=== PATIENT | male | born 1980 | race Caucasian/White ===

== ENCOUNTER → 2018-07-17 09:01 | Outpatient (CLI) | payer OTHER, SELFPAY ==
[2018-07-17 10:01] LABS: LDH 199 U/L (87-241)
[2018-07-18 13:47] LABS: HCG BETA-SUBUNIT QUANT. < 1 mIU/mL (0-3)
== END ==
PROVIDERS: Family Provider Family Medicine; PCP Family Medicine; Referring Provider Urology; Visit Provider Urology
DX: Z85.47 Personal history of malignant neoplasm of testis (principal)
CPT/HCPCS: 36415; 82105; 83615; 84702

== ENCOUNTER → 2019-01-21 13:38 | Outpatient (CLI) | payer OTHER, SELFPAY ==
--- NOTE | 2019-01-21 13:46 | ECHOD_ITS ---
Reason For Study: Sarcoidosis Procedure This was a 2D Doppler, Color Flow transthoracic echocardiogram. Exam performed in department. Left Ventricle Normal size and thickness. The estimated ejection fraction is 65 %. Stage 1 diastolic dysfunction. No regional wall motion abnormalities noted. Right Ventricle Normal size and thickness. Normal systolic function. Atria Normal left atrium. Normal right atrium. Normal atrial septum. Mitral Valve The mitral valve is structurally normal. No prolapse or stenosis seen. Equivocal mitral valve prolapse. Tricuspid Valve Normal tricuspid valve. Trivial tricuspid valve insufficiency. Right ventricular systolic pressure estimated to be 21 mmHg. Aortic Valve Normal aortic valve. Trisinus/trileaflet aortic valve. Pulmonic Valve Normal pulmonic valve. Trivial pulmonic valve insufficiency. Great Vessels Normal aortic root. Normal arch. Normal inferior vena cava. Inferior vena cava collapse with sniff. Pericardium/Pleural No pericardial effusion. MMode/2D Measurements & Calculations LVIDd: 4.9 cm IVSd: 1.0 cm Ao root diam: 3.3 cm LVIDs: 3.5 cm LVPWd: 0.89 cm RVDd: 4.3 cm FS: 28.0 % LAV(MOD-bp): 35.8 ml LVAd ap4: 33.2 cm2 SV(MOD-sp4): 64.3 ml LAV(MOD-bp) Indexed: 16.6 ml/m2 EDV(MOD-sp4): 103.1 ml LAV(MOD-sp2): 44.1 ml EDV(sp4-el): 105.5 ml LAV(MOD-sp4): 26.5 ml LVAs ap4: 18.4 cm2 ESV(MOD-sp4): 38.8 ml ESV(sp4-el): 39.3 ml EF(MOD-sp4): 62.4 % EF(sp4-el): 62.7 % SV(sp4-el): 66.2 ml LA A4 area: 12.3 cm2 LA dimension(2D): 3.3 cm RA A4 area: 15.0 cm2 Doppler Measurements & Calculations MV E max jorje: 63.0 cm/sec Lat Peak E' Jorje: 9.4 cm/sec Med Peak E' Jorje: 8.5 cm/sec MV A max jorje: 77.0 cm/sec E/E' lat: 6.7 E/E' med: 7.4 MV E/A: 0.82 Ao V2 max: 142.4 cm/sec LV V1 max: 116.3 cm/sec PA V2 max: 110.7 cm/sec Ao max P.1 mmHg LV V1 max P.4 mmHg Ao V2 mean: 101.6 cm/sec Ao mean P.4 mmHg Ao V2 VTI: 26.5 cm TR max jorje: 202.7 cm/sec TR max P.4 mmHg Interpretation Summary The estimated ejection fraction is 65 %. Stage 1 diastolic dysfunction. Trivial tricuspid valve insufficiency. Right ventricular systolic pressure estimated to be 21 mmHg. Equivocal mitral valve prolapse. There is no comparison study available. Ordering Physician: Jorge Waller Referring Physician: James Isaacs Performed By: Shelley Cottrell RDCS, RVT
--- NOTE | 2019-01-21 14:28 | CT_ITS ---
STUDY: CT CHEST WITHOUT CONTRAST REASON FOR EXAM: Male, 38 years old. History of sarcoidosis RADIATION DOSAGE (If Supplied By Facility): CTDIvol = ( 12.56 ) mGy, DLP = ( 486.15 ) mGycm TECHNIQUE: Transaxial imaging was performed without the administration of intravenous contrast material. Individualized dose optimization techniques were used for this CT. COMPARISON: March 09, 2012. FINDINGS: TRACHEA, THYROID, ESOPHAGUS: No tracheomalacia,stricture or wall thickening. Thyroid and esophagus are normal CARDIOVASCULAR SYSTEM: The thoracic aorta is grossly within normal limits. The pulmonary trunk and the left pulmonary arteries are also grossly within normal limits. The heart is not enlarged. There are no vascular developmental anomalies. LIZA AND LYMPH NODES: No hilar masses and no mediastinal, hilar, axillary or supraclavicular adenopathy LUNGS, HIGH /LOW ATTENUATION: There are numerous perilymphatic nodules scattered in both upper lobes. They are intermingled with post inflammatory and traction bronchiectatic changes especially in the right apex. No evidence of honeycombing, groundglass opacities or cavitations. Similar findings were noted in the last examination of January 08, 2012 LUNGS, MOSAIC/CRAZY PAVING: Not evident PLEURA AND CHEST WALL: No plural effusions, pneumothoraces,rib fractures or any osteolytic/osteoblastic changes . The soft tissue chest wall including the breasts are normal UPPER ABDOMEN: Unremarkable CT/Chest without Contrast IMPRESSION: The findings in this study are consistent with stage IV sarcoidosis. There has been no change since the last examination of January 08, 2012 Electronically Signed: Agusto Chapman MD at 7:36 EDT Tel , Service support ,
--- NOTE | 2019-01-21 14:37 | EKG12_ITS ---
Test Reason : SARCOIDOSIS Blood Pressure : / mmHG Vent. Rate : 070 BPM Atrial Rate : 070 BPM P-R Int : 158 ms QRS Dur : 082 ms QT Int : 372 ms P-R-T Axes : 053 051 048 degrees QTc Int : 401 ms Normal sinus rhythm Normal ECG Confirmed by GOLDY MCGEE, DORI ([id number]), design editor PITO JAMES [id number] on 01/26/2019 3:49:40 PM Referred By: Jorge Waller Confirmed By:DORI WINSLOW MD
== END ==
PROVIDERS: Family Provider Family Medicine; PCP Family Medicine
DX: D86.9 Sarcoidosis, unspecified (principal)
CPT/HCPCS: 71250; 93005; 93306

== ENCOUNTER → 2019-05-12 13:23 | Outpatient (CLI) | payer OTHER, SELFPAY ==
--- NOTE | 2019-05-12 13:28 | RAD_ITS ---
STUDY: X-RAY - ABDOMEN/PELVIS REASON FOR EXAM: Male, 38 years old. Flank pain TECHNIQUE: AP supine and upright views of the abdomen and pelvis. COMPARISON: CT from 2016 FINDINGS: 1 cm calcification overlying the right renal shadow. There is an unremarkable bowel gas pattern. There is no demonstrated free abdominal air. The visualized liver, spleen and kidneys are grossly normal in size and morphology. There are calcified phleboliths in the pelvis. Normal visualized osseous structures. RAD/Abdomen Single View IMPRESSION: Right nephrolithiasis Electronically Signed: Emerson Carpio MD at 13:54 EDT , Service support ,
== END ==
PROVIDERS: Family Provider Family Medicine; PCP Family Medicine; Referring Provider Urology; Visit Provider Urology
DX: N20.0 Calculus of kidney (principal)
CPT/HCPCS: 74018

== ENCOUNTER 2019-07-22 05:52 | Day surgery (SDC) | payer OTHER, SELFPAY ==
[2019-07-16 11:17] VITALS: BP 144/86; PULSE 65; RESP 16; TEMP 36.1; O2SAT 99; BMI 26.0
[2019-07-16 11:43] LABS: Hematocrit 47.4 % (40-54); Hemoglobin 15.8 g/dL (13.0-16.5); Mean Corp Hgb Conc 33.3 g/dL (32-36); Mean Corpuscular Hgb 29.9 pg (27.0-32.0); Mean Corpuscular Volume 89.6 fL (80-94); Mean Platelet Vol. 10.5 fl (6.2-12.0); Platelet Count 184 K/mm3 (150-450); RBC Distribution Width CV 12.9 % (11.6-14.6); RBC Distribution Width SD 42.4 fl (35.1-43.9); Red Blood Count 5.29 M/mm3 (4.6-6.2); White Blood Count 5.2 K/mm3 (4.4-11.0)
[2019-07-16 11:56] LABS: International Normalized Ratio 1.2; Prothrombin Time (Protime)PT. 14.6 SECONDS (11.7-14.9)
[2019-07-16 11:57] LABS: Partial Thromboplast Time 38.1 Seconds (24.1-36.2)
[2019-07-16 11:59] LABS: AST(SGOT) 18 U/L (15-37); Alanine Aminotransfer ALT/SGPT 26 U/L (16-61); Albumin, Serum 4.2 g/dL (3.2-5.0); Alkaline Phosphatase 69 U/L (45-117); Anion Gap 2 (5-15); BUN 11 mg/dL (7-18); BUN/Creat Ratio 10.8 RATIO (10-20); Bilirubin, Direct 0.15 mg/dL (0.00-0.30); Chloride 106 mmol/L (98-107); Creatinine, Serum 1.02 mg/dL (0.70-1.30); EST Glomerular Filtration Rate 86 mL/min (>60); Est Glom Filt Rate - Afr Amer 104 mL/min (>60); Estimated Creatinine Clearance 113.05 ml/min; Globulin 3.4 g/dL (2.2-4.2); Glucose 94 mg/dL (74-106); Potassium 4.4 mmol/L (3.5-5.1); Protein, Total 7.6 g/dL (6.4-8.2); Sodium Level 140 mmol/L (136-145)
[2019-07-22 06:15] VITALS: BP 115/87; PULSE 74; RESP 16; TEMP 36.9; O2SAT 99; BMI 26.0
[2019-07-22] MEDS: Lactated Ringers 1,000 ML 100 ML IV ×2 (06:30→09:30)
[2019-07-22] MEDS: Cefazolin 2 GM in 0.9% Normal Saline 100 ML IV (08:04)
--- NOTE | 2019-07-22 09:16 | DCINST_ITS ---
Discharge Diet: No Restrictions, Light diet - advance as tolerated Discharge Activity: Return to Normal Activity Return to work on:: 07/27/19 - Off work Till Saturday Call your doctor if your incision/area has: Sudden Increased Bleeding, Increased Pain/ Swelling, Increased Redness Call your doctor if you observe: Fever of 101 or Higher, Inability to urinate, Uncontrolled pain Instructions: Treating Kidney Stones: Ureteroscopic Stone Removal Allergies/Adverse Reactions: Allergies No Known Allergies Allergy (Verified 07/22/19 06:13) Medications to take at Discharge Ciprofloxacin [Cipro] 500 mg PO BID #6 tab 07/22/19 Oxycodone HCl/Acetaminophen [Percocet 5/325] 1 tab PO Q4H PRN PRN 5 Days #20 tab 07/22/19 Phenazopyridine [Pyridium] 100 mg PO TID PRN #20 tab 07/22/19 The following prescriptions were given: Ciprofloxacin [Cipro] 500 mg PO BID #6 tab Prescription Printed Oxycodone HCl/Acetaminophen [Percocet 5/325] 1 tab PO Q4H PRN PRN 5 Days #20 tab PRN Reason: Pain Prescription Printed Phenazopyridine [Pyridium] 100 mg PO TID PRN #20 tab PRN Reason: burning with urination Prescription Printed Primary Care Physician: James Isaacs [Primary Care Provider] - Test Results: Test results from this visit will be discussed in further detail at your follow- up appointment, if applicable. Please Follow Up With: Mani Lopez MD When: please call to make an appointment.
[2019-07-22] MEDS: Ketorolac 15 MG/ML Vial IV (09:18)
--- NOTE | 2019-07-22 09:19 | OP.PCM_ITS ---
Report of Operation Date of Procedure: 07/22/19 Pre-Operative Diagnosis: Right calyceal large renal calculi within the div erticulum Post-Operative Diagnosis: The same Surgery/Procedure Performed:: Cystoscopy, right retrograde pyelogram, interpretation fluoroscopic images, balloon dilation of the ureter, balloon dilation of the infundibulum of the diverticulum, right ureteroscopy laser lithotripsy of stone, and right stent placement. Description of Surgical Findings:: 38-year-old male with a stone known to be within a diverticulum of the kidney stone is been getting larger is now causing intermittent obstruction and pain and discomfort the patient wishes to have the stone treated talked about options of management including retrograde ureteroscopy and percutaneous approach, I think we can proceed with a retrograde ureteroscopy laser lithotripsy of stone and stent placement. 38-year-old male taken back to the operating room after smooth induction of anesthesia he was placed in dorsolithotomy position penis and testicles are prepped and draped in usual sterile fashion, went into the urethra with a 21 [place] rigid cystoscope, the meatus was normal, pendulous urethra was normal, bulbar urethra is normal, sphincter was intact, verumontanum was identified, prostate was normal, went inside the bladder identified the trigone, identified the right and left ureteral orifice, the rest of the bladder was normal. I then cannulated the right ureter orifice with a Glidewire and a Pollack catheter advanced the Pollack catheter up in the kidney performed a retrograde pyelogram could see the anatomy and could see there was a stone about 8 mm in size within the diverticulum and there was a narrow neck infundibular the lump coming off the upper pole of the collecting system. Once this was identified we then studied the fluoroscopic images I then advanced a balloon dilator over the wire and balloon dilated the distal ureteral orifice to allow for ureteroscopy we used a 12 [place] 10 cm balloon dilator, after this was done that I backloaded the scope off the wire left the wire in place and over the wire went in with a flexible ureteroscope was able to get into the ureter quite easily worked my way up to the kidney and then once in the kidney I used fluoroscopy and visual guidance to identify the narrow infundibular neck was able then put a wire through the neck and coiled around the stone that was in the diverticulum. Then over the wire advanced a 15 [place] 10 cm balloon dilator advanced a balloon dilator all the way up to the kidney and then was able to balloon dilate the neck of the diverticulum with the balloon dilator. After the neck of the diverticulum was then dilated open then I went in with a flexible ureteroscope over the wire and entered the diverticulum and then the stone was treated with 270 ?m laser fiber settings for most of the case with 3 Hz up to 20 Hz and 0.2 J to 0.6 J. After lasering the stone into there was only dust particles left I then worked my way down the ureter no injury or trauma along the course of the ureter left the wire up in the kidney and then over the wire I advanced the stent it was a 6 [place] by 26 cm stent left the short string on the stent in case it would migrate up the kidney since the ureter length was quite long and the 26 cm stent barely reached. Once a stent was in good position pulled the wire the stent coiled in the kidney bladder good position I drained the bladder removed the cystoscope the patient was taken back to PACU in good condition we will see me next week to remove the stent with a cystoscope. Type of Anesthesia:: General Drains: stent - Admit VTE Documentation VTE Present on Admission: No VTE Mechan Device Prophylaxis: SCD's
[2019-07-22 09:24] VITALS: BP 115/87; BP 132/85; PULSE 77; RESP 16; TEMP 36.7; O2SAT 98
[2019-07-22 09:30] VITALS: BP 115/87; BP 127/83; PULSE 66; RESP 16; O2SAT 98
[2019-07-22 09:45] VITALS: BP 115/87; BP 124/80; PULSE 65; RESP 16; O2SAT 98
[2019-07-22 09:50] VITALS: BP 115/87; BP 127/85; PULSE 68; RESP 16; TEMP 36.3; O2SAT 99
[2019-07-22] MEDS: HYDROcodone Bitartrate/Apap 5/325 Tablet PO (10:30)
[2019-07-22 11:00] VITALS: BP 115/87
== END 2019-07-22 11:15 | disposition home or self-care (01) ==
LOC: SDC 05:52 → AC 05:52
PROVIDERS: Anesthesiology; Family Provider Family Medicine; PCP Family Medicine; Referring Provider Urology; Visit Provider Urology
PROC: 0TJ98ZZ Inspection of Ureter, Via Natural or Artificial Opening Endoscopic (ICD-10-PCS; CPT 52352; principal; 2019-07-22 07:50)
DX: N21.0 Calculus in bladder (principal); D86.9 Sarcoidosis, unspecified; Z87.442 Personal history of urinary calculi; Z72.89 Other problems related to lifestyle; Z87.891 Personal history of nicotine dependence; Z85.47 Personal history of malignant neoplasm of testis
CPT/HCPCS: 00873; 52356; 76000; 80048; 80076; 85027; 85610; 85730; J7120; C1726; C1769; C2617; J2405

== ENCOUNTER → 2019-09-07 08:04 | Outpatient (CLI) | payer OTHER, SELFPAY ==
--- NOTE | 2019-09-07 08:07 | RAD_ITS ---
STUDY: X-RAY - ABDOMEN/PELVIS REASON FOR EXAM: Male, 39 years old. TECHNIQUE: 1 view COMPARISON: May 12, 2019 FINDINGS: The previously seen small stone in the upper aspect of the right kidney is no longer detected in today's examination. The gas pattern is nonspecific in distribution, no organomegaly or soft tissue masses identified. There are multiple phleboliths in the pelvic cavity. RAD/Abdomen Single View IMPRESSION: The right kidney stone that was seen earlier is not identified in today's study. The examination is considered negative. Electronically Signed: Mik Mendoza, at 15:13 EST Tel , Service support ,
== END ==
PROVIDERS: Family Provider Family Medicine; PCP Family Medicine; Referring Provider Urology; Visit Provider Urology
DX: N20.0 Calculus of kidney (principal)
CPT/HCPCS: 74018

== ENCOUNTER 2020-07-03 07:41 | Emergency (ER) | payer OTHER, SELFPAY ==
[2020-07-03 07:43] VITALS: BP 132/77; PULSE 76; RESP 14; TEMP 36.5; O2SAT 100; BMI 24.2
[2020-07-03 07:47] VITALS: BP 129/80; PULSE 65; RESP 12; O2SAT 100
--- NOTE | 2020-07-03 07:52 | ED.VIS.GEN ---
History of Present Illness Chief Complaint: Chest Pain Informant: Patient, Family Narrative: 39-year-old male with no significant history presenting with chest pain which woke him up from sleep at about 4 AM. He describes this as sharp and it radiates centrally up into his middle chest. It does not radiate elsewhere. He has no associated diaphoresis or nausea with it. He has no history of DVT/PE. He does have a history of sarcoidosis. He is a non-smoker. He takes no medications. His only cardiac risk is his father had a heart attack at 50. The patient's mother came over with nitroglycerin that belonged to his father and gave him for which did take his pain from a 9 to a 5. Patient has been otherwise healthy, and has no cough, fever, shortness of breath, loss of taste or smell, exposure to someone ill that he knows of. Past Medical History - Allergies and Home Meds Allergies/Adverse Reactions: Allergies No Known Allergies Allergy (Verified 07/03/20 07:47) Primary Care Physician: Eladio Medel MD [STAFF PHYSICIAN] - James Isaacs MD [Primary Care Provider] - Past Medical History: - - History of testicular cancer in remission Surgical History: noncontributory Lives: Spouse/ Significant Other Smoking Status: Former smoker Alcohol: None Drugs: None Review of Systems General: Denies: Chills, Fever, Sweats Eyes: Denies: Visual changes - bilaterally, Diplopia ENT: Denies: Rhinorrhea, Sore throat Cardiovascular: Reports: Chest pain. Denies: Palpitations, Heart racing Respiratory: Denies: Dyspnea, Cough, Sputum Gastrointestinal: Denies: Abdominal pain, Nausea, Vomiting Genitourinary: Denies: Dysuria, Hematuria Musculoskeletal: Denies: Myalgias, Arthralgias Skin: Denies: Rash, Abscess Neurological: Denies: Headache, Weakness, Parasthesia Physical Exam Vital Signs/Narrative: Vital Signs Temp Pulse Resp BP Pulse Ox 07/03/20 07:43 97.7 F L 76 14 132/77 H 100 Inital Vital Signs reviewed: Yes General: Well nourished, Acute Distress Head: Normocephalic, Atraumatic Eyes: Perrl, EOMI ENT: Moist mucous membranes, No rhinorrhea Cardiovascular: Regular rate, Regular rhythm Respiratory: No distress, CTA bilaterally, Chest nontender Abdomen: Soft, Nontender, Nondistended Back: Nontender, Normal Inspection Extremities: Nontender, No edema Skin: Normal color, No rash Neurological: Alert, Oriented x3 Psychological: Normal affect, Normal Mood Diagnostic/Tx/Re-eval Clinical Impression(s) from Imaging Studies Chest X-Ray 07/03/20 07:59 IMPRESSION: Right upper lobe pneumonia, atelectasis, mass, or scarring. Correlation with CT the chest with contrast is recommended. Electronically Signed: Cleveland Mcmanus MD at 8:44 EDT Tel , Service support , Chest CTA 07/03/20 09:14 IMPRESSION: 1. No CT evidence of pulmonary embolism. 2. No change in chronic interstitial lung disease with right upper lobe bronchiectasis and scarring likely related to history of sarcoidosis. 3. Interval development of 4 x 5 cm posterior mediastinal lymphadenopathy which may be secondary to sarcoidosis or metastatic disease. Electronically Signed: Cleveland Mcmanus MD at 10:51 EDT Tel , Service support , Laboratory Data 07/03/20 07/03/20 07/03/20 07:45 07:45 10:45 WBC 7.8 RBC 4.93 Hgb 14.9 Hct 45.2 MCV 91.7 MCH 30.2 MCHC 33.0 RDW Std Deviation 42.7 RDW Coeff of Jacey 12.8 Plt Count 235 MPV 10.6 Immature Gran % (Auto) 1.300 H Neut % (Auto) 54.4 Lymph % (Auto) 30.7 Laurel % (Auto) 10.3 H Eos % (Auto) 2.7 Baso % (Auto) 0.6 Absolute Neuts (auto) 4.2 Absolute Lymphs (auto) 2.38 Nucleated RBC % 0 Sodium 142 Potassium 4.2 Chloride 107 Carbon Dioxide 30.0 Anion Gap 5 BUN 12 Creatinine 1.04 Estim Creat Clear Calc 109.78 Est GFR (MDRD) Af Amer 101 Est GFR (MDRD) Non-Af 84 BUN/Creatinine Ratio 11.5 Glucose 105 Calcium 8.9 Troponin I < 0.015 < 0.015 - Rhythm Strip Rhythm Strip: Sinus Rhythm Rate: 57 - EKG Initial EKG Interpretation: No Acute Injury Pattern, Sinus Bradycardia Follow-up EKG Interpretation: No Acute Injury Pattern, Sinus Bradycardia Prior: Unchanged - Medical Decision Making Patient was seen and evaluated on arrival for chest pain which she described as sharp and centrally located. There is no radiation of the pain. He has no other symptoms. He states his only medical problem is sarcoidosis. EKG is sinus rhythm without signs of ischemia. Troponin, delta troponin delta EKG are unchanged. Blood work is in normal limits. Have an abnormal x-ray finding and radiology recommended a CT of the chest which was performed. This shows no PE or pneumonia but does show chronic scarring as well as a new mediastinal lymph node. The radiologist did express some concern for possible malignancy but stated it also could be due to sarcoidosis. 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 Medel stated that the patient should call his office tomorrow and he will see him within the next week. Patient was amenable with this discharge plan. I do not believe his chest pain is due to ACS. Patient is given return precautions otherwise he will follow-up outpatient. Impression: 1. Chest pain 2. Mediastinal lymphadenopathy with concern for possible malignancy 3. History of sarcoidosis ED Disposition - Plan for ED Patient: Disposition: Home or Assisted Living Instructions: ED Chest Pain NonCardiac Prescriptions: Oxycodone HCl/Acetaminophen [Percocet 5/325] 1 tab PO Q6H PRN PRN 3 Days #12 tab PRN Reason: Pain Prescription Printed Referrals: James Isaacs MD [Primary Care Provider] - Eladio Medel MD [STAFF PHYSICIAN] -
--- NOTE | 2020-07-03 07:59 | EKG12_ITS ---
Test Reason : CP Blood Pressure : / mmHG Vent. Rate : 056 BPM Atrial Rate : 056 BPM P-R Int : 180 ms QRS Dur : 092 ms QT Int : 420 ms P-R-T Axes : 065 057 056 degrees QTc Int : 405 ms Sinus bradycardia Otherwise normal ECG Confirmed by GOLDY MCGEE, DORI ([id number]), desk editor NAKUL FERRARA ([id number]) on 07/05/2020 1:33:39 PM Referred By: Confirmed By:DORI WINSLOW MD
--- NOTE | 2020-07-03 07:59 | RAD_ITS ---
STUDY: X-RAY CHEST REASON FOR EXAM: Male, 39 years old. substernal chest pain TECHNIQUE: Single AP portable view of the chest. COMPARISON: 10/23/2014 FINDINGS: Focal alveolar opacity in the upper right lung which may represent pneumonia, atelectasis, or mass or scarring. Correlation with CT the chest with contrast is recommended. There is no demonstrated pleural abnormality. Normal size heart. Normal mediastinum and paula. Normal visualized pulmonary arteries. Normal visualized aortic arch and descending thoracic aorta. Normal visualized thoracic spine. Normal visualized ribs, clavicles, and shoulders. There is no demonstrated abnormality of the visualized soft tissue structures of the upper abdomen. RAD/Chest 1 View (Portable) IMPRESSION: Right upper lobe pneumonia, atelectasis, mass, or scarring. Correlation with CT the chest with contrast is recommended. Electronically Signed: Cleveland Mcmanus MD at 8:44 EDT Tel , Service support ,
[2020-07-03 08:09] LABS: Absolute Lymphocyte Count 2.38 X10^3/uL (0.83-4.51); Absolute Neutrophil Count 4.2 X10^3/uL (2.0-7.7); Basophil# 0.05 X10^3/uL; Basophil% 0.6 % (0-1); Eosinophil# 0.21 X10^3/uL; Eosinophils% 2.7 % (0-5); Hematocrit 45.2 % (40-54); Hemoglobin 14.9 g/dL (13.0-16.5); Lymphocyte # 2.38 X10^3/ul (4.0); Lymphocyte % 30.7 % (19-41); Mean Corpuscular Hgb 30.2 pg (27.0-32.0); Mean Corpuscular Volume 91.7 fL (80-94); Mean Platelet Vol. 10.6 fl (6.2-12.0); Monocyte% 10.3 % (0-10); NRBC Flagged by Analyzer 0 % (0-5); Neutrophil # 4.21 X10^3/uL (2.7-7.7); Neutrophil % 54.4 % (47-70); Platelet Count 235 K/mm3 (150-450); RBC Distribution Width CV 12.8 % (11.6-14.6); RBC Distribution Width SD 42.7 fl (35.1-43.9); Red Blood Count 4.93 M/mm3 (4.6-6.2); White Blood Count 7.8 K/mm3 (4.4-11.0)
[2020-07-03] MEDS: Mag Hydrox/Al Hydrox/Simeth 30 ML UDC PO (08:14)
[2020-07-03 08:27] LABS: Anion Gap 5 (5-15); BUN 12 mg/dL (7-18); BUN/Creat Ratio 11.5 RATIO (10-20); Calcium,Total 8.9 mg/dL (8.5-10.1); Chloride 107 mmol/L (98-107); Creatinine, Serum 1.04 mg/dL (0.70-1.30); EST Glomerular Filtration Rate 84 mL/min (>60); Est Glom Filt Rate - Afr Amer 101 mL/min (>60); Estimated Creatinine Clearance 109.78 ml/min; Glucose 105 mg/dL (74-106); Potassium 4.2 mmol/L (3.5-5.1); Sodium Level 142 mmol/L (136-145)
[2020-07-03 08:42] VITALS: BP 118/78; PULSE 63; RESP 16; O2SAT 98
[2020-07-03 09:00] VITALS: BP 119/79; PULSE 57; RESP 16; O2SAT 99
--- NOTE | 2020-07-03 09:13 | EKG12_ITS ---
Test Reason : CP Blood Pressure : / mmHG Vent. Rate : 065 BPM Atrial Rate : 065 BPM P-R Int : 180 ms QRS Dur : 092 ms QT Int : 412 ms P-R-T Axes : 065 050 052 degrees QTc Int : 428 ms Normal sinus rhythm Normal ECG Confirmed by GOLDY MCGEE, DORI ([id number]), assignment desk editor NAKUL FERRARA ([id number]) on 07/05/2020 1:34:30 PM Referred By: Confirmed By:DORI WINSLOW MD
--- NOTE | 2020-07-03 09:14 | CT_ITS ---
STUDY: CTA CHEST REASON FOR EXAM: Male, 39 years old. 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 Post-processing of the angiographic images was performed, with multiplanar reformation and 3D reconstruction. Individualized dose optimization techniques were used for this CT. COMPARISON: 01/21/2019 FINDINGS: Normal enhancement of the main pulmonary artery and right and left pulmonary arteries. Normal enhancement of the bilateral peripheral pulmonary arteries. There is no demonstrated pulmonary embolism. Normal thoracic aorta and visualized great vessels. There is no demonstrated aortic dissection. Normal heart and pericardium. 4 x 5 cm oval soft tissue mass in the posterior mediastinum with encasement of the descending thoracic aorta and displacement of the esophagus anteriorly worrisome for metastatic mediastinal lymphadenopathy. Normal hilar regions. Normal visualized trachea and bronchi. The lungs are well expanded. There is no change in the reticular interstitial densities throughout the lungs consistent with the chronic interstitial lung disease. Also no change in the focal bronchiectasis and scarring in the right upper lobe. Normal pleura. Normal chest wall structures. Normal osseous structures. Normal visualized upper abdomen. CT/CTA Chest W/WO Contrast IMPRESSION: 1. No CT evidence of pulmonary embolism. 2. No change in chronic interstitial lung disease with right upper lobe bronchiectasis and scarring likely related to history of sarcoidosis. 3. Interval development of 4 x 5 cm posterior mediastinal lymphadenopathy which may be secondary to sarcoidosis or metastatic disease. Electronically Signed: Cleveland Mcmanus MD at 10:51 EDT Tel , Service support ,
[2020-07-03] MEDS: Ondansetron 4 MG/2 ML Vial IV (09:15)
[2020-07-03] MEDS: Morphine 4 MG/ML Syringe IV (09:16)
[2020-07-03 10:45] VITALS: BP 117/79; PULSE 60; RESP 16; O2SAT 97
--- NOTE | 2020-07-03 10:45 | EKG12_ITS ---
Test Reason : CP Blood Pressure : / mmHG Vent. Rate : 057 BPM Atrial Rate : 057 BPM P-R Int : 170 ms QRS Dur : 096 ms QT Int : 414 ms P-R-T Axes : 060 052 057 degrees QTc Int : 402 ms Sinus bradycardia Otherwise normal ECG Confirmed by GOLDY MCGEE, DORI ([id number]), editorial director NAKUL FERRARA ([id number]) on 07/05/2020 1:33:57 PM Referred By: JORGE LUIS Confirmed By:DORI WINSLOW MD
[2020-07-03 12:26] VITALS: BP 134/82; PULSE 75; RESP 20
== END 2020-07-03 12:34 | disposition home or self-care (01) ==
LOC: ED 08:24
PROVIDERS: Emergency Provider Student in an Organized Health Care Education/Training Program; PCP Family Medicine
DX: R07.9 Chest pain, unspecified (principal); Z85.47 Personal history of malignant neoplasm of testis; Z87.891 Personal history of nicotine dependence; R59.1 Generalized enlarged lymph nodes
CPT/HCPCS: 36415; 71045; 71275; 80048; 84484; 85025; 93005; 96374; 96375; 99284; Q9967; A4216; J2405

== ENCOUNTER → 2020-08-12 14:45 | Outpatient (CLI) | payer OTHER, SELFPAY ==
[2020-08-09 14:31] VITALS: BMI 23.7
--- NOTE | 2020-08-12 14:51 | US_ITS ---
STUDY: SCROTUM ULTRASOUND REASON FOR EXAM: Male, 40 years old. 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 COMPARISON: None. FINDINGS: RIGHT TESTICLE Status post right orchiectomy. LEFT TESTICLE INTRATESTICULAR: There is a normal size of the left testicle. The left testicle measures 5.0 x 2.8 x 2.1 cm. There is a homogenous echotexture. There is normal arterial and normal venous vascularity. There is no demonstrated left testicular mass or cyst. EXTRATESTICULAR: The epididymis is normal in size. The epididymis head measures 1.8 cm. There is normal vascularity of the epididymis. There is no demonstrated epididymal cystic structure. There is no demonstrated hydrocele. There is no demonstrated varicocele. There is no demonstrated extratesticular mass or cyst. US/Testicular with Arterial Flow IMPRESSION: Normal left testicle.. Electronically Signed: Cleveland Mcmanus MD at 13:33 EDT Tel , Service support ,
== END ==
PROVIDERS: PCP Family Medicine; Referring Provider Urology; Visit Provider Urology
DX: Z85.47 Personal history of malignant neoplasm of testis (principal)
CPT/HCPCS: 76870; 93976

== ENCOUNTER → 2020-08-16 07:15 | Outpatient (CLI) | payer OTHER, SELFPAY ==
[2020-08-09 14:31] VITALS: BMI 23.7
--- NOTE | 2020-08-16 07:18 | CT_ITS ---
STUDY: CT ABDOMEN AND PELVIS WITH CONTRAST REASON FOR EXAM: Male, 40 years old. 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 RADIATION DOSAGE (If Supplied By Facility): CTDIvol = ( 13.06 ) mGy, DLP = ( 1265.65 ) mGycm TECHNIQUE: Transaxial images were obtained from the dome of the diaphragm to the symphysis pubis without oral contrast. IV 100mL Isovue-300 was administered. Sagittal and coronal images were reconstructed. Individualized dose optimization techniques were used for this CT. COMPARISON: Comparison is made with prior examination dated 05/10/2016. FINDINGS: 4.8 mm noncalcified nodule in the posterior aspect of the lingular segment of the left upper lobe. Minimal ground glass appearance is seen in the lingular segment of the left upper lobe as well as in the left lower lobe. Minimal ground glass appearance is seen in the anterior aspect of the right lower lung. The visualized portions of the heart are within normal limits. Normal liver. Normal gallbladder and extrahepatic biliary system. Borderline splenomegaly. Normal pancreas. Normal bilateral adrenal glands. Normal right kidney. Normal left kidney. Normal visualized stomach. Normal small intestine. Normal colon. The appendix is visualized and appears normal. Normal abdominal aorta. Normal inferior vena cava. There is a 3.2 cm x 2.8 cm x 3.1 cm rounded hypodense soft tissue mass posterior to the head of the pancreas and anterior and to the right side of the inferior vena cava. This most likely represents lymphadenopathy. Normal urinary bladder. Normal abdominal wall. Normal osseous structures. CT/Abdomen/Pelvis W IV Cont ONLY IMPRESSION: 3.2 cm x 2.8 cm x 3.1 cm hypodense soft tissue mass posterior to that of the pancreas and anterior and to the right side of the inferior vena cava. This most likely represents adenopathy. 4.8 mm noncalcified nodule in the posterior aspect of the lingular symptoms of the left upper lobe with mild groundglass appearance as described. Electronically Signed: James Valentin, at 10:33 EST , Service support ,
--- NOTE | 2020-08-16 07:18 | CT_ITS ---
STUDY: CT CHEST WITH CONTRAST REASON FOR EXAM: Male, 40 years old. 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 RADIATION DOSAGE (If Supplied By Facility): CTDIvol = ( 13.06 ) mGy, DLP = ( 1265.65 ) mGycm TECHNIQUE: Transaxial imaging was performed following intravenous administration of IV 100mL Isovue-300. Multiplanar coronal and sagittal images were reformatted. Individualized dose optimization techniques were used for this CT. COMPARISON: Comparison is made with prior study dated 07/03/2012. FINDINGS: Small benign appearing bilateral axillary lymph nodes. Stable scarring and bronchiectasis in the right upper lobe most likely secondary to prior radiation treatment. Stable spiculated nodule in the peripheral aspect of the left upper lobe measuring 1.4 cm. Stable mild increased markings in both lungs suggestive of possible scarring or post radiation changes. There is no demonstrated pleural abnormality. Normal heart and pericardium. Once again, there is evidence of a soft tissue mass in the posterior mediastinum encasing the descending thoracic aorta and displacement of the esophagus anteriorly. This mass as increased in size presently measuring 5.8 cm x 4.7 cm x 9.5 cm. This most likely represents adenopathy. Normal hilar regions. Normal enhanced pulmonary arteries. Normal aorta arch and descending thoracic aorta. Normal osseous structures. There is no demonstrated abnormality of the visualized upper abdomen. CT/Chest WITH Contrast IMPRESSION: Progressive increase in size of the posterior mediastinal mass most likely secondary to enlarged lymph nodes. The remainder of the examination is unchanged. Electronically Signed: James Valentin, at 10:56 EST , Service support ,
== END ==
PROVIDERS: PCP Family Medicine; Referring Provider Internal Medicine Hematology & Oncology; Visit Provider Internal Medicine Hematology & Oncology
DX: C38.3 Malignant neoplasm of mediastinum, part unspecified (principal); C62.90 Malignant neoplasm of unspecified testis, unspecified whether descended or undescended; C62.92 Malignant neoplasm of left testis, unspecified whether descended or undescended
CPT/HCPCS: 71260; 74177; Q9967

== ENCOUNTER → 2020-08-18 07:19 | Outpatient (CLI) | payer OTHER, SELFPAY ==
[2020-08-09 14:31] VITALS: BMI 23.7
--- NOTE | 2020-08-18 07:20 | MRI_ITS ---
STUDY: MRI BRAIN WITH AND WITHOUT CONTRAST REASON FOR EXAM: Male, 40 years old. Metastatic germ cell tumor, seminoma. No neuro symptoms. TECHNIQUE: Standardized multiplanar fat and water weighted pulse sequences were obtained. 17 mL of IV DOTAREM was administered for the contrast portion of the examination. COMPARISON: None. FINDINGS: No restricted diffusion throughout the brain parenchyma. No focal signal abnormalities throughout the brain parenchyma in all of the pulse sequences. Normal size of the ventricles and extra-axial spaces for the patient''s age. Normal white matter tracts of the supratentorial brain. Normal bilateral basal ganglia. Normal thalami. There is no extra-axial fluid accumulation. Normal flow voids within the major intracranial circulation suggesting patency by spin echo criteria. Normal venous enhancement. There is no enhancing intra-axial or extra-axial abnormality. Normal sella turcica, pituitary gland, infundibular stalk, optic chiasm and hypothalamus. Normal tectal plate and pineal gland. Normal midbrain, mina and medulla. Normal cerebellum. Normal basal cisterns. Normal bilateral temporal bones. Normal bilateral internal auditory canals. No demonstrated orbital abnormality, within the constraints of a routine brain study. Normal visualized paranasal sinuses. Normal calvarium and skull base. Normal visualized soft tissue structures. Normal visualized upper cervical spine. MRI/Brain W/WO Contrast IMPRESSION: Normal unenhanced and enhanced MRI of the brain. Electronically Signed: Jayce Dhillon MD at 13:46 EST , Service support ,
== END ==
PROVIDERS: PCP Family Medicine; Referring Provider Internal Medicine Hematology & Oncology; Visit Provider Internal Medicine Hematology & Oncology
DX: C38.3 Malignant neoplasm of mediastinum, part unspecified (principal); C62.90 Malignant neoplasm of unspecified testis, unspecified whether descended or undescended; C62.92 Malignant neoplasm of left testis, unspecified whether descended or undescended
CPT/HCPCS: 70553; A9575

== ENCOUNTER 2020-08-26 10:47 | Day surgery (SDC) | payer OTHER, SELFPAY ==
[2020-08-23 14:34] VITALS: BMI 23.7
[2020-08-26] VITALS (8 sets, daily range): BP systolic 117–138; BP diastolic 74–93; PULSE 74–83; RESP 16; TEMP 36.4–36.8; O2SAT 97–99; BMI 24.0
--- NOTE | 2020-08-26 10:09 | HP_ITS ---
Intake Vital Signs 08/23/20 Height 6 ft 2 in 08/23/20 Weight: 185 lb 08/23/20 BMI 23.7 08/23/20 BP 117/81 H 08/23/20 Blood Pressure Location Rt brachial 08/23/20 Position Sitting 08/23/20 Respiration 18 08/23/20 Pulse 87 08/23/20 Pulse Source Monitor 08/23/20 Temp 97.8 F 08/23/20 Temp Source Temporal 08/23/20 Pulse Oximetry (%) 96 08/23/20 Oxygen Delivery Method room air Intake Visit Reasons: PORT PLACEMENT Chief Complaint: port placement consult Recreation Leader Required: No Accompanied by: Is patient in pain?: No Allergies No Known Allergies Allergy (Verified 08/23/20 14:36) Medications Lidocaine/Prilocaine [Lidocaine-Prilocaine Cream] 1 applic TP DAILY 30 Days #1 tube 08/22/20 [Rx Confirmed 08/23/20] Ondansetron [Ondansetron Odt] 8 mg PO Q8H PRN PRN 10 Days #30 tab.rapdis 08/22/20 [Rx Confirmed 08/23/20] Prochlorperazine Maleate 10 mg PO Q6H PRN PRN 10 Days #30 tab 08/22/20 [Rx Confirmed 08/23/20] PFSH Medical History Cancer, testis, seminoma (Chronic) Encounter for education (Acute) Sarcoidosis (Chronic) Metastatic cancer to intra-abdominal lymph nodes (Acute) Germ cell tumor of mediastinum (Acute) Kidney calculi (Acute) Surgical History History of arthroplasty of right shoulder (Acute) History of lung biopsy (Acute) Family History Father Heart disease Grandfather Heart disease Lung cancer Social History (Updated 08/23/20 @ 14:[address] Sam Saenz MD) Smoking Status: Former smoker HPI HPI HPI: JULIO EMANUEL, is a 40 M who presents to the office today for HPI HPI Surgical H&P: Yes HPI: JULIO EMANUEL, is a 40 M who presents to the office today for port for chemotherapy for testicular cancer. ROS General General: No weight change, appetite, fatigue, colon cancer, breast cancer or weakness HEENT HEENT: No difficulty swallowing, eye injury, eye surgery, swollen glands or hoarseness Endo Endocrine: No thyroid disease, diabetes mellitus, thyroid cancer, Hair loss, heat intolerance or cold intolerance Skin Skin: No rash or changing moles Breast Breast: No left breast lump, right breast lump, nipple discharge, breast pain, abnormal mammogram, abnormal US or breast enlargement Musc Musculoskeletal: Yes back problems; no arthritis, rheumatoid arthritis, gout or joint pain Cardio Cardiovascular: No murmur, pacemaker, heart disease, atrial fibrillation, high blood pressure, heart attack, heart stent, palpitations, shortness of breat with exertion or chest pain Psych Psychiatric: No depression, anxiety or hearing voices Resp Respiratory: Yes shortness of breath, No sleep apnea, No cough, No COPD, No asthma, No emphysema, No wheezing Gastro Gastrointestinal: No abdominal pain, No nausea or vomiting, No diarrhea, No constipation, No blood in stool, No acid reflux, Yes hemorrhoids, No ulcers, No gallbladder problem, No black,tarry stools Fly Hematologic: No blood thinners, No blood disorders, No bleeding, No anemia, No blood clots Neuro Neurologic: No system reviewed and no additional complaints, except as docu, No as per HPI, No abnormal walking, No abnormal hearing, No abnormal movements, No abnormal speech, No behavioral changes, No burning sensations, No confusion, No seizure-like activity, No unsteadiness, No dizziness, No localized weakness, No frequent falls, No headache(s), No lack of coordination, No loss of vision, No memory loss, No numbness, No other visual disturbances, No radiating pain, No restless legs, No sensory deficit, No fainting, No tingling, No tremor(s), No weakness, No other Exam Const General: cooperative Orientation: alert, oriented x3 Chest Breast Palpation: No nipple discharge Resp Effort & Inspection: normal respiratory effort Auscultation: clear to auscultation bilaterally Cardio Rate: regular rate Rhythm: regular rhythm Heart Sounds: no murmurs GI Inspection: non-distended Palpation: soft, nontender Assessment & Plan Problems 1. 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 Encounter for insertion of venous access port Z45.2 Plan I discussed port placement with the patient in detail. I discussed the risks including but not limited to bleeding, infection, pneumothorax, DVT or line infection. The patient understands all the risks and I will schedule him for port placement this week. He is to start chemotherapy next week. The patient would like to tamayo this weekend and would like to shower so I will not leave his port accessed. They will access his port on Saturday. We discussed the current risks associated with COVID-19. While it is understood that there is a community spread of COVID-19, the risk of nimco COVID-19 while at [facility] ([facility]) is very low; however, the risk cannot be completely mitigated because of the community spread of the disease. We discussed in detail the risk of exposure to and/or potential harm posed by the COVID-19 virus with having a surgery/procedure at this time versus the risk of delaying the surgery/procedure. It is not possible to know either the risk of delaying the surgery or procedure or chance of getting an infection with perfect accuracy, but a joint decision was made to proceed at this time with the scheduled surgery/procedure as indicated on the consent form. Patient was notified that we will need to comply with any screening or testing [facility] wishes to perform or that surgery may be delayed for any positive results. 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 There are no clinical changes since date of exam.
[2020-08-26] MEDS: Lactated Ringers 1,000 ML 100 ML IV (11:32)
[2020-08-26] MEDS: Cefazolin 2 GM in 0.9% Normal Saline 100 ML IV (12:17)
[2020-08-26] MEDS: Bupiv/Epi 0.5% Mpf 30 ML Vial (12:48)
--- NOTE | 2020-08-26 13:10 | RAD_ITS ---
STUDY: X-RAY CHEST REASON FOR EXAM: Male, 40 years old. POST PORT PLACEMENT TECHNIQUE: Single AP portable view of the chest. COMPARISON: Comparison is made with prior study dated 07/03/2020. FINDINGS: A right-sided thiago catheter has been placed. The tip is at the junction of the superior vena cava and right atrium. Hyperinflation. Stable increased coarse markings in the right upper lobe suggestive of scarring. There is no demonstrated pleural abnormality. Normal size heart. Soft tissue density in the subcarinal region. Normal visualized pulmonary arteries. There is atherosclerotic tortuosity of the aortic arch and descending thoracic aorta. Normal visualized thoracic spine. Normal visualized ribs, clavicles, and shoulders. There is no demonstrated abnormality of the visualized soft tissue structures of the upper abdomen. RAD/CXR for Line Placement IMPRESSION: The tip of the right thiago catheter is at the junction of the superior vena cava and right atrium. Stable increased markings in the right upper lobe. Soft tissue density in the subcarinal region. Electronically Signed: James Valentin, at 13:36 EST , Service support ,
--- NOTE | 2020-08-26 13:11 | OP.PCM_ITS ---
Problem List (1) Encounter for adjustment and management of vascular access device Status: Acute (2) Cancer, testis, seminoma Status: Chronic Qualifiers: Report of Operation Date of Procedure: 08/26/20 Pre-Operative Diagnosis: Need for vascular access for chemotherapy Post-Operative Diagnosis: Same Surgery/Procedure Performed:: Ultrasound and fluoroscopy guided right chest port placement utilizing right IJ Description of Procedure: After obtaining informed consent patient was brought back to the operating room MAC anesthesia was induced and the right chest and neck were prepped in normal sterile fashion. Ultrasound was used to evaluate both IJs and the right IJ was selected. Next, using a needle, the right IJ was accessed and a guidewire was passed on into the superior vena cava under fluoroscopy guidance. A small incision was made over the puncture site and the dilator introducer was placed over the guidewire. Next this was capped and the pocket was made for the port. 1% lidocaine with epinephrine was injected in the proposed port site. An incision was made with scalpel. Electrocautery was used to make a pocket under the skin and subcutaneous tissue. Hemostasis was obtained. Next, the catheter was tunneled up to the neck incision site and placed through the introducer. The peel-away introducer was removed and the position of the catheter was confirmed on fluoroscopy. Next, the catheter was trimmed and attached to the port with the locking device. Interrupted 2-0 Vicryl sutures were used to anchor the port to the chest wall and then the port was placed inside the pocket. The pocket was then flushed with saline and the port irrigated with saline. There was good blood return and the port flushed easily. Next, heparin was injected into the port. The skin was closed with subcutaneous interrupted 3-0 Vicryl sutures. A single 3-0 Vicryl sutures placed under the skin at the ne ck incision site. Steri-Strips were placed as well as op sites. Patient tolerated procedure well, was taken to PACU in stable condition. Chest x-ray will be obtained. Grafts/Implants Used: 8 [employer]
--- NOTE | 2020-08-26 13:12 | DCINST_ITS ---
Discharge Diet: No Restrictions - Pain medication may cause nausea. You should typically eat light foods as you take your pain medication. Discharge Activity: Return to Normal Activity, May Shower - with your bandage in place in 1-2 days after surgery. DO NOT SHOWER WHEN YOUR PORT IS ACCESSED. Call your doctor if your incision/area has: Continuous Slow Oozing, Sudden Increased Bleeding, Increased Pain/ Swelling, Increased Redness Call your doctor if you observe: Fever of 101 or Higher Remove Dressing in (days):: 3 - When you remove the bandage, leave the steri- strips intact until they fall off. Allergies/Adverse Reactions: Allergies No Known Allergies Allergy (Verified 08/26/20 10:52) Medications to take at Discharge Lidocaine/Prilocaine [Lidocaine-Prilocaine Cream] 1 applic TP DAILY 30 Days #1 tube 08/22/20 Ondansetron [Ondansetron Odt] 8 mg PO Q8H PRN PRN 10 Days #30 tab.rapdis 08/22/20 Prochlorperazine Maleate 10 mg PO Q6H PRN PRN 10 Days #30 tab 08/22/20 Guaifenesin [Mucinex] 600 mg PO PRN PRN MDD CONGESTION 08/26/20 Primary Care Physician: James Isaacs MD [Primary Care Provider] - Test Results: Test results from this visit will be discussed in further detail at your follow- up appointment, if applicable. Please Follow Up With: Sam Saenz MD When: Please call to schedule 2 week follow up appointment. [phone]
== END 2020-08-26 14:43 | disposition home or self-care (01) ==
LOC: SDC 10:50 → AC 10:51
PROVIDERS: PCP Family Medicine; Referring Provider Family Medicine; Visit Provider Surgery
PROC: (CPT 36561; principal; 2020-08-26 12:15)
DX: Z45.2 Encounter for adjustment and management of vascular access device (principal); C62.91 Malignant neoplasm of right testis, unspecified whether descended or undescended; C77.2 Secondary and unspecified malignant neoplasm of intra-abdominal lymph nodes; Z87.891 Personal history of nicotine dependence; Z20.828 Contact with and (suspected) exposure to other viral communicable diseases
CPT/HCPCS: 00532; 36561; 71045; 77001; 87426; C9803; J7120; C1788

== ENCOUNTER → 2020-11-24 08:16 | Outpatient (CLI) | payer OTHER, SELFPAY ==
[2020-10-31 08:54] VITALS: BMI 25.1
[2020-11-04 08:53] VITALS: BMI 25.1
--- NOTE | 2020-11-24 08:21 | CT_ITS ---
STUDY: CT ABDOMEN AND PELVIS WITH CONTRAST REASON FOR EXAM: Male, 40 years old. TESTICULAR CANCER RESPONSE TO TREATMENT RADIATION DOSAGE (If Supplied By Facility): CTDIvol = ( 12.69 ) mGy, DLP = ( 1172.76 ) mGycm TECHNIQUE: Transaxial images were obtained from the dome of the diaphragm to the symphysis pubis without oral contrast. 100 mL of IV ISOVUE-300 was administered. Sagittal and coronal images were reconstructed. Individualized dose optimization techniques were used for this CT. COMPARISON: CT abdomen and pelvis with IV contrast 08/16/2020. FINDINGS: 4.8 mm pulmonary nodule in the inferior lingula segment of the left upper lobe is unchanged (series 605, image 132; series 3, image 6). There are also minimal nonspecific groundglass appearance in the inferior lingular segment of the left upper lobe and in the left anterior lung base. The visualized portions of the heart are within normal limits. Normal liver. Normal gallbladder and extrahepatic biliary system. Normal spleen. Normal pancreas. Normal bilateral adrenal glands. Normal right kidney. Normal left kidney. Normal visualized stomach. Normal small intestine. Normal colon. The appendix is visualized and appears normal. Normal abdominal aorta. Normal inferior vena cava. Normal retroperitoneum. Normal nearly empty urinary bladder. Normal size and configuration of the prostate gland. Normal abdominal wall. Minimal anterior wedging of the superior endplates of T12 and L1 vertebral bodies are presumably from remote injury. They are unchanged. CT/Abdomen/Pelvis W IV Cont ONLY IMPRESSION: 1. Interval resolution of the soft tissue mass/lymphadenopathy behind the pancreas and anterior to the right side of the inferior vena cava when compared to 08/16/2020. 2. No CT evidence of metastatic lymphadenopathy or mass in the abdomen and pelvis. 3. 4.8 mm noncalcified pulmonary nodule in the caudal aspect of the inferior lingular segment of the left upper lobe with mild groundglass appearance and minimal groundglass appearance in the left lower lobe are unchanged. Electronically Signed: Jayce Dhillon MD at 9:05 EST , Service support ,
--- NOTE | 2020-11-24 08:21 | CT_ITS ---
STUDY: CT CHEST WITH CONTRAST REASON FOR EXAM: Male, 40 years old. TESTICULAR CANCER RESPONSE RADIATION DOSAGE (If Supplied By Facility): CTDIvol = ( 12.69 ) mGy, DLP = ( 1172.76 ) mGycm TECHNIQUE: Transaxial imaging was performed following intravenous administration of 100 mL of ISOVUE 300. Coronal and sagittal reconstructions were performed. Individualized dose optimization techniques were used for this CT. COMPARISON: CT chest with contrast 08/16/2020. FINDINGS: Pulmonary hyperinflation with flattening of the hemidiaphragms. Focal scarring with multiple bronchiectatic changes in the right upper lobe are chronic and unchanged. Increased size of spiculated mass in the left upper lobe measures 1.6 x 1 cm, previously 1.4 x 0.7 cm (series 8, image 55; series 601, image 149). Subpleural scarring of the adjacent left peripheral lung parenchyma is unchanged. Scattered areas of interlobular septal thickening are chronic and unchanged. There is no demonstrated pleural abnormality. Microcardia. Normal pericardium. Normal mediastinum. Elevation of the right hilum due to right upper lobe fibrosis. Normal left hilum. Normal enhanced pulmonary arteries. Normal aorta arch and descending thoracic aorta. No pulmonary thromboemboli. Minimal anterior wedging of the superior endplate of T12 vertebral body and L1 vertebral body are presumably from remote injury. They are unchanged. There is no demonstrated abnormality of the visualized upper abdomen. CT/Chest WITH Contrast IMPRESSION: 1. Increased size of spiculated pulmonary nodule in the left upper lobe measuring 1.6 x 1 cm, previously 1.4 x 0.7 cm. This is worrisome for neoplasm. 2. Right upper lobe fibrosis surrounding multiple areas of bronchiectasis and causing elevation of the right hilum. This area is unchanged. 3. Ill-defined scattered areas of interlobular septal thickening in both lungs are chronic and unchanged. 4. Airway predominant type of COPD is unchanged. 5. Minimal anterior wedging of the superior endplates of T12 and L1 vertebral bodies are presumably from remote injury. They are unchanged. Electronically Signed: Jayce Dhillon MD at 16:23 EST , Service support ,
[2020-11-24] MEDS: 0.9% Saline Lock 10 ML Syringe IV (08:35)
== END ==
PROVIDERS: PCP Family Medicine; Visit Provider Internal Medicine Hematology & Oncology
DX: C38.3 Malignant neoplasm of mediastinum, part unspecified (principal); C62.90 Malignant neoplasm of unspecified testis, unspecified whether descended or undescended; C77.2 Secondary and unspecified malignant neoplasm of intra-abdominal lymph nodes; C62.92 Malignant neoplasm of left testis, unspecified whether descended or undescended
CPT/HCPCS: 71260; 74177; Q9967; A4216

== ENCOUNTER → 2021-03-17 07:54 | Outpatient (CLI) | payer OTHER, SELFPAY ==
[2020-12-28 08:43] VITALS: BMI 25.3
--- NOTE | 2021-03-17 07:55 | CT_ITS ---
STUDY: CT CHEST, ABDOMEN T PELVIS WITH CONTRAST REASON FOR EXAM: Male, 40 years old. F/U METASTATIC TESTICULAR CANCER. Prior right orchiectomy. RADIATION DOSAGE (If Supplied By Facility): CTDIvol = ( 11.98 ) mGy, DLP = ( 1320.36 ) mGycm TECHNIQUE: Transaxial imaging was performed following intravenous administration of IV 100mL Isovue-300. Individualized dose optimization techniques were used for this CT. COMPARISON: Comparison is made with prior examination 11/24/2020. FINDINGS: CHEST A right-sided portacatheter is seen with the tip in the superior vena cava. Hyperinflation. Persistent 5.8 cm x 4.8 cm irregular density in the posterior aspect of the right upper lobe with evidence of multiple cystic spaces suggest some bronchiectasis. There is a 2.3 cm by 1.4 cm nodule in the posterior aspect of the left upper lobe abutting the fissure. Focal calcification is seen along its posterior aspect. This has increased in size as compared to prior study. Stable scarring in the lingular segment of the left upper lobe. Stable emphysematous changes in both lungs. There is no demonstrated pleural abnormality. Normal heart and pericardium. Normal mediastinum. Normal hilar regions. Normal unenhanced pulmonary arteries. Normal aorta arch and descending thoracic aorta. Stable minimal anterior wedging of the superior endplate of the T12 and L1 vertebrae. There is no demonstrated abnormality of the visualized upper abdomen. ABDOMEN Normal liver. Normal gallbladder and extrahepatic biliary system. Normal spleen. Normal pancreas. Normal bilateral adrenal glands. Normal right kidney. Normal left kidney. Normal visualized stomach. Normal small intestine. Normal colon. The appendix is visualized and appears normal. Normal abdominal aorta. Normal inferior vena cava. There is borderline retroperitoneal lymphadenopathy with enlarged nodes no greater than 10mm in the short axis diameter. There is a small umbilical hernia containing fat. Stable loss of height of the superior endplate of the T12 and L1 vertebrae. PELVIS Normal urinary bladder. Normal visualized small intestine. Normal visualized colon. There is no pelvic fluid. There is no pelvic lymphadenopathy or mass lesion. Normal visualized pelvic arteries. CT/CT Chest, Abd, Pel w/Contrast IMPRESSION: Persistent scarring and bronchiectasis in the right upper lobe. 2.3 cm x 1.4 NIKKI nodule in the posterior aspect of the left upper lobe abutting the fissure. Focal calcification is seen along its posterior aspect. This has increased in size as compared to prior study. Electronically Signed: James Valentin MD at 9:21 EDT , Service support ,
[2021-03-17 08:20] LABS: CREATININE FINGERSTICK 1.1 mg/dL (0.70-1.30); EGFR FINGERSTICK > 60.0000 mL/min (>60)
[2021-03-17] MEDS: 0.9% Saline Lock 10 ML Syringe IV (08:30)
[2021-03-17 08:38] LABS: Absolute Lymphocyte Count 1.23 X10^3/uL (0.83-4.51); Absolute Neutrophil Count 1.8 X10^3/uL (2.0-7.7); Basophil# 0.03 X10^3/uL; Basophil% 0.8 % (0-1); Eosinophil# 0.21 X10^3/uL; Eosinophils% 5.7 % (0-5); Hematocrit 41.7 % (40-54); Lymphocyte # 1.23 X10^3/ul (0.83-4.51); Lymphocyte % 33.3 % (19-41); Mean Corp Hgb Conc 33.6 g/dL (32-36); Mean Corpuscular Hgb 28.9 pg (27.0-32.0); Mean Platelet Vol. 9.6 fl (6.2-12.0); Monocyte# 0.43 X10^3/uL; Monocyte% 11.7 % (0-10); NRBC Flagged by Analyzer 0 % (0-5); Neutrophil # 1.75 X10^3/uL (2.7-7.7); Neutrophil % 47.4 % (47-70); Platelet Count 167 K/mm3 (150-450); RBC Distribution Width CV 13.2 % (11.6-14.6); RBC Distribution Width SD 41.4 fl (35.1-43.9); Red Blood Count 4.85 M/mm3 (4.6-6.2); White Blood Count 3.7 K/mm3 (4.4-11.0)
[2021-03-17 08:55] LABS: ALB/GLOB Ratio 1.1 RATIO (0.9-2.4); AST(SGOT) 19 U/L (15-37); Alanine Aminotransfer ALT/SGPT 33 U/L (16-61); Albumin, Serum 3.5 g/dL (3.2-5.0); Alkaline Phosphatase 76 U/L (45-117); Anion Gap 4 (5-15); BUN 12 mg/dL (7-18); BUN/Creat Ratio 12.9 RATIO (10-20); Calcium,Total 8.4 mg/dL (8.5-10.1); Chloride 105 mmol/L (98-107); Creatinine, Serum 0.93 mg/dL (0.70-1.30); EST Glomerular Filtration Rate 95 mL/min (>60); Est Glom Filt Rate - Afr Amer 114 mL/min (>60); Globulin 3.3 g/dL (2.2-4.2); Glucose 99 mg/dL (74-106); LDH 138 U/L (87-241); Magnesium 2.1 mg/dL (1.6-2.6); Phosphorus 2.9 mg/dL (2.5-4.9); Protein, Total 6.8 g/dL (6.4-8.2); Sodium Level 138 mmol/L (136-145)
[2021-03-18 08:41] LABS: AFP, Tumor Marker 1.9 ng/mL (0.0-8.3); HCG BETA-SUBUNIT QUANT. < 1 mIU/mL (0-3)
== END ==
PROVIDERS: PCP Family Medicine; Referring Provider Internal Medicine Hematology & Oncology; Visit Provider Internal Medicine Hematology & Oncology
DX: C38.3 Malignant neoplasm of mediastinum, part unspecified (principal); C62.90 Malignant neoplasm of unspecified testis, unspecified whether descended or undescended; C77.2 Secondary and unspecified malignant neoplasm of intra-abdominal lymph nodes
CPT/HCPCS: 71260; 74177; 80053; 82105; 83615; 83735; 84100; 84702; 85025; Q9967; A4216

== ENCOUNTER → 2021-06-16 07:55 | Outpatient (CLI) | payer OTHER, SELFPAY ==
[2021-03-23 15:36] VITALS: BMI 25.9
--- NOTE | 2021-06-16 08:07 | CT_ITS ---
INDICATION: F/U TESTICULAR CANCER AND SARCOIDOSIS EXAMINATION: CT CHEST WITH CONTRAST - CT Chest W/ Contrast Injection TECHNIQUE: Helically acquired images were obtained of the chest following IV contrast. A radiation dose optimization technique was used for this scan. IV Contrast dosage and agent: 100 mL of ISOVUE-370. COMPARISON: 03/17/2021. FINDINGS: LUNGS, PLEURA AND LARGE AIRWAYS: Pleural-based density visualized along the posterior left lower lobe seen on axial series 4 image 38 demonstrates significant decrease in size in comparison to the prior study. 0.4 cm pleural-based nodularity seen on axial series 4 image 94 in the inferior lateral aspect of the left upper lobe demonstrates no change in comparison to the prior study. Pleural-based interstitial prominence visualized in the lateral aspect of the left upper and lower lung diallo seen on axial series 4 image 91 demonstrates no change in comparison to the prior study. Bronchial dilation consistent with bronchiectasis is visualized most prominent in the right upper lobe, soft tissue density visualized surrounding the dilated bronchioles consistent with consolidation visualized most prominent in the right upper lobe with a irregularity in the contour of the bronchioles, this demonstrates slight prominence in comparison to the prior study. Mild prominence of the interstitial lung markings is visualized in bilateral lung diallo with scattered areas of groundglass opacification seen and the subtle scattered fibrotic and emphysematous bullous changes also seen. Subtle scattered areas of scarring visualized. THYROID: No thyroid lesions. HEART AND PERICARDIUM: Heart size is normal. No pericardial effusion. VESSELS: Thoracic aorta is not dilated. No aortic dissection. No obvious central pulmonary embolism although this study was not performed with the pulmonary embolism protocol. MEDIASTINUM AND LIZA: Hilar or mediastinal lymph nodes with subtle scattered calcifications visualized demonstrating no significant change in comparison to the prior study. UPPER ABDOMEN: No evidence of hiatus hernia is seen. BONES: No suspicious lytic or blastic abnormality. CT/Chest WITH Contrast IMPRESSION: Bronchiectatic, scattered consolidations, emphysematous and chronic interstitial changes are again visualized, nodularity visualized in the left upper lobe demonstrates slight decrease in size in comparison to the prior study. No evidence of well-defined parenchymal lung masses. Electronically Signed: Norman Paz MD at 10:48 EDT Tel , Service support ,
[2021-06-16] MEDS: 0.9% Saline Lock 10 ML Syringe IV (08:20)
[2021-06-16 09:19] LABS: LDH 164 U/L (87-241)
[2021-06-17 09:12] LABS: AFP, Tumor Marker 2.5 ng/mL (0.0-8.3); HCG BETA-SUBUNIT QUANT. < 1 mIU/mL (0-3)
== END ==
PROVIDERS: PCP Family Medicine; Referring Provider Internal Medicine Hematology & Oncology; Visit Provider Internal Medicine Hematology & Oncology
DX: C62.91 Malignant neoplasm of right testis, unspecified whether descended or undescended (principal); D86.9 Sarcoidosis, unspecified; C77.2 Secondary and unspecified malignant neoplasm of intra-abdominal lymph nodes; C38.3 Malignant neoplasm of mediastinum, part unspecified
CPT/HCPCS: 71260; 82105; 83615; 84702; Q9967; A4216

== ENCOUNTER 2021-12-14 06:55 | Outpatient (CLI) | payer OTHER, SELFPAY ==
--- NOTE | 2021-12-14 07:03 | CT_ITS ---
STUDY: CT CHEST, ABDOMEN T PELVIS WITH CONTRAST REASON FOR EXAM: Male, 41 years old. F/U TESTICULAR CANCER. Prior right orchiectomy. History of sarcoidosis. RADIATION DOSAGE (If Supplied By Facility): CTDIvol = ( 14.34 ) mGy, DLP = ( 1356.75 ) mGycm TECHNIQUE: Transaxial imaging was performed following intravenous administration of IV 100mL Isovue-300. Individualized dose optimization techniques were used for this CT. COMPARISON: Comparison is made with prior examination dated 06/16/2021. FINDINGS: CHEST Stable bronchiectasis and scarring in the medial posterior aspect of the right upper lobe. Stable linear scarring and density in the posterior aspect of the left upper lobe adjacent to the left major fissure. Stable areas of groundglass appearance in the peripheral aspects of both upper lobes suggestive of scarring. The patient does have a history of sarcoidosis. Focal groundglass appearance is also seen along the anterior aspect of the left lower lung. No definite metastatic disease is seen. There is no demonstrated pleural abnormality. Normal heart and pericardium. Normal mediastinum. Normal hilar regions. Normal unenhanced pulmonary arteries. Normal aorta arch and descending thoracic aorta. Normal osseous structures. ABDOMEN Normal liver. Normal gallbladder and extrahepatic biliary system. Normal spleen. Normal pancreas. Normal bilateral adrenal glands. Normal right kidney. Normal left kidney. Normal visualized stomach. Normal small intestine. There are scattered colonic diverticula consistent with diverticulosis. The appendix is visualized and appears normal. Normal abdominal aorta. Normal inferior vena cava. Normal retroperitoneum. Normal abdominal wall. Normal osseous structures. PELVIS Normal urinary bladder. Normal visualized small intestine. Normal visualized colon. There is no pelvic fluid. There is no pelvic lymphadenopathy or mass lesion. Normal visualized pelvic arteries. Normal abdominal wall. Normal osseous structures. CT/CT Chest, Abd, Pel w/Contrast IMPRESSION: Stable examination. There is been essentially no change. Electronically Signed: James Valentin MD at 16:01 EST ,
== END 2021-12-14 23:59 | disposition home or self-care (01) ==
PROVIDERS: PCP Family Medicine; Referring Provider Internal Medicine Hematology & Oncology; Visit Provider Internal Medicine Hematology & Oncology
DX: C62.91 Malignant neoplasm of right testis, unspecified whether descended or undescended (principal)
CPT/HCPCS: 71260; 74177; Q9967

== ENCOUNTER → 2022-06-27 | Outpatient (CLI) | payer OTHER, SELFPAY ==
--- NOTE | 2022-06-27 07:17 | CT_ITS ---
STUDY: CT CHEST, ABDOMEN T PELVIS WITH CONTRAST REASON FOR EXAM: Male, 41 years old. TESTICULAR CANCER RADIATION DOSAGE (If Supplied By Facility): CTDIvol = ( 11.19 ) mGy, DLP = ( 1027.73 ) mGycm TECHNIQUE: Transaxial imaging was performed following intravenous administration of IV 100mL Isovue-370. Individualized dose optimization techniques were used for this CT. COMPARISON: 12/14/2021 FINDINGS: CHEST No change in bilateral pulmonary scarring with bronchiectasis in the right upper lobe. No noncalcified nodule or mass. There is no demonstrated pleural abnormality. Normal heart and pericardium. Normal mediastinum. Normal hilar regions. Normal unenhanced pulmonary arteries. Normal aorta arch and descending thoracic aorta. Normal osseous structures. There is no demonstrated abnormality of the visualized upper abdomen. ABDOMEN The visualized lung bases are unremarkable. The visualized portions of the heart are within normal limits. Normal liver. Normal gallbladder and extrahepatic biliary system. Normal spleen. Normal pancreas. Normal bilateral adrenal glands. Normal right kidney. Normal left kidney. Normal visualized stomach. Normal small intestine. Normal colon. The appendix is visualized and appears normal. Normal abdominal aorta. Normal inferior vena cava. Normal retroperitoneum. Normal abdominal wall. Normal osseous structures. PELVIS Normal urinary bladder. 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 Normal visualized small intestine. Normal visualized colon. There is no pelvic fluid. There is no pelvic lymphadenopathy or mass lesion. Normal visualized pelvic arteries. Normal abdominal wall. Normal osseous structures. CT/CT Chest, Abd, Pel w/Contrast IMPRESSION: No CT evidence of metastatic disease. Electronically Signed: Cleveland Mcmanus MD at 14:27 EDT ,
== END | disposition home or self-care (01) ==
PROVIDERS: PCP Family Medicine; Referring Provider Internal Medicine Hematology & Oncology; Visit Provider Internal Medicine Hematology & Oncology
DX: C62.90 Malignant neoplasm of unspecified testis, unspecified whether descended or undescended (principal)
CPT/HCPCS: 71260; 74177; Q9967

== ENCOUNTER → 2023-09-19 | Outpatient (CLI) | payer OTHER, SELFPAY ==
--- NOTE | 2023-09-19 07:04 | CT_ITS ---
STUDY: CT CHEST, ABDOMEN T PELVIS WITH CONTRAST REASON FOR EXAM: Male, 43 years old. F/U TESTICULAR CA IV CONTRAST ONLY RADIATION DOSAGE (If Supplied By Facility): CTDIvol = ( 15.83 ) mGy, DLP = ( 1527.74 ) mGycm TECHNIQUE: Transaxial imaging was performed following intravenous administration of IV 100mL Isovue-370. Multiplanar coronal and sagittal images were reformatted. Individualized dose optimization techniques were used for this CT. COMPARISON: Comparison is made with prior study of June 27, 2022. 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 Stable focal scarring in the posterior aspect of the left upper lobe extending to the lateral pleural surface. There is no demonstrated pleural abnormality. Normal heart and pericardium. Normal mediastinum. Normal hilar regions. Normal unenhanced pulmonary arteries. Normal aorta arch and descending thoracic aorta. Normal osseous structures. There is no demonstrated abnormality of the visualized upper abdomen. ABDOMEN Normal liver. Normal gallbladder and extrahepatic biliary system. Normal spleen. Normal pancreas. Normal bilateral adrenal glands. Normal right kidney. Normal left kidney. Normal visualized stomach. Normal small intestine. Normal colon. The appendix is visualized and appears normal. Normal abdominal aorta. Normal inferior vena cava. There is borderline retroperitoneal lymphadenopathy with enlarged nodes no greater than 10mm in the short axis diameter. Normal abdominal wall. Normal osseous structures. PELVIS Normal urinary bladder. Stable 2 cm oval hypodensity in the midline at the base of the penis. Normal visualized small intestine. Normal visualized colon. There is no pelvic fluid. There is no pelvic lymphadenopathy or mass lesion. Normal visualized pelvic arteries. Normal abdominal wall. Normal osseous structures. CT/CT Chest, Abd, Pel w/Contrast IMPRESSION: Stable examination. Electronically Signed: James Valentin MD at 13:24 EST ,
== END | disposition home or self-care (01) ==
PROVIDERS: PCP Family Medicine; Referring Provider Internal Medicine Hematology & Oncology; Visit Provider Internal Medicine Hematology & Oncology
DX: C77.2 Secondary and unspecified malignant neoplasm of intra-abdominal lymph nodes (principal); C38.3 Malignant neoplasm of mediastinum, part unspecified; C62.90 Malignant neoplasm of unspecified testis, unspecified whether descended or undescended
CPT/HCPCS: 71260; 74177; Q9967

== ENCOUNTER → 2024-09-17 | Outpatient (CLI) | payer OTHER, SELFPAY ==
--- NOTE | 2024-09-17 07:55 | CT_ITS ---
STUDY: CT CHEST, ABDOMEN T PELVIS WITH CONTRAST REASON FOR EXAM: Male, 44 years old. F/U TESTICULAR CANCER. History of prior right orchiectomy and left lung lobectomy. RADIATION DOSAGE (If Supplied By Facility): CTDIvol = ( 16.28 ) mGy, DLP = ( 1278.66 ) mGycm TECHNIQUE: Transaxial imaging was performed following intravenous administration of IV 100mL Isovue-370. Multiplanar coronal and sagittal images were reformatted. Individualized dose optimization techniques were used for this CT. COMPARISON: Comparison is made with prior study dated September 19, 2023. FINDINGS: CHEST Once again, there is evidence of a 4.5 cm x 4.8 cm x 4.6 cm rounded area of bronchiectasis and scarring in the posterior medial aspect of the right upper lobe. There is also evidence of scarring in the lingular segment of the left upper lobe and the right lower lobe. There is no demonstrated pleural abnormality. Normal heart and pericardium. Normal mediastinum. Normal hilar regions. Normal unenhanced pulmonary arteries. Normal aorta arch and descending thoracic aorta. There are mild degenerative changes of the thoracic spine. There is no demonstrated abnormality of the visualized upper abdomen. ABDOMEN The visualized lung bases are unremarkable. The visualized portions of the heart are within normal limits. Normal liver. Normal gallbladder and extrahepatic biliary system. Normal spleen. Normal pancreas. Normal bilateral adrenal glands. Normal right kidney. Normal left kidney. Normal visualized stomach. Normal small intestine. Normal colon. The appendix is visualized and appears normal. Normal abdominal aorta. Normal inferior vena cava. Normal retroperitoneum. Normal abdominal wall. Normal osseous structures. PELVIS Normal urinary bladder. Stable 2 cm oval hypodensity in the midline at the base of the penis. The prostate measures 4.75 x 5.5 cm. Central prostatic calcification is seen. Normal visualized small intestine. Normal visualized colon. There is no pelvic fluid. There is no pelvic lymphadenopathy or mass lesion. Normal visualized pelvic arteries. Normal abdominal wall. Normal osseous structures. CT/CT Chest, Abd, Pel w/Contrast IMPRESSION: Stable examination. Electronically Signed: James Valentin MD at 13:35 EST ,
== END | disposition home or self-care (01) ==
LOC: CT 07:51
PROVIDERS: PCP Nurse Practitioner Family; Referring Provider Internal Medicine Hematology & Oncology; Visit Provider Internal Medicine Hematology & Oncology
DX: C62.91 Malignant neoplasm of right testis, unspecified whether descended or undescended (principal); C77.2 Secondary and unspecified malignant neoplasm of intra-abdominal lymph nodes; C38.3 Malignant neoplasm of mediastinum, part unspecified
CPT/HCPCS: 71260; 74177; Q9967

== ENCOUNTER → 2025-09-14 | Outpatient (CLI) | payer OTHER, SELFPAY ==
--- NOTE | 2025-09-14 15:34 | CT_ITS ---
PROCEDURE: CT CHEST, ABD, PEL W/CONTRAST 09/14/2025 REASON FOR EXAM: F/U TESTICULAR CANCER IV CONTRAST ONLY Male, 44 years old. F/U TESTICULAR CANCER. History of prior right orchiectomy and left lung lobectomy. TECHNIQUE: Chest, abdomen and pelvis CT with intravenous contrast. Coronal and Sagittal reconstruction series were provided. One or more dose reduction techniques were used (e.g., Automated exposure control, adjustment of the mA and/or kV according to patient size, use of iterative reconstruction technique. PATIENT PREPARATION: Per protocol ORAL CONTRAST TYPE: None. AMOUNT: mL CONTRAST: Isovue 370 VOLUME: 75mL RADIATION DOSE SUMMARY: CTDlvol: 13.11 mGy DLP: 1339.41 mGycm COMPARISON: CT chest abdomen and pelvis September 17, 2024. FINDINGS: CT CHEST: Hardware: None. Lymph nodes: No lymphadenopathy. Heart and Vasculature: No cardiomegaly. No atherosclerotic calcifications of the coronary arteries. Lungs and Airways: Airspace opacities with traction bronchiectasis in the upper lobes consistent with scarring. Worsening diffuse interstitial densities in the upper lobes may be posttreatment. No new consolidation. Pleura: No pleural effusion or pneumothorax. Bones: No acute bony abnormalities. CT ABDOMEN/PELVIS: Liver: Unremarkable. Gallbladder: Unremarkable. No biliary dilation. Spleen: Unremarkable. Pancreas: Unremarkable. Adrenals: Unremarkable. Kidneys: A 1.4 cm simple cyst at the midpole of the right kidney. No hydronephrosis. No nephrolithiasis. Bladder: Unremarkable. Reproductive Organs: Unremarkable. Bowel: No bowel wall thickening. No bowel obstruction. Appendix: Unremarkable. Lymph nodes: No lymphadenopathy. Vasculature: No aneurysm. Peritoneum / Retroperitoneum: Bones: No acute bony abnormalities. CT/CT Chest, Abd, Pel w/Contrast IMPRESSION: Compared to CT chest abdomen and pelvis September 17, 2024, worsening diffuse int erstitial thickening of the upper lobes of the lungs may represent post treatment changes. Pneumonitis or pneumonia is to be excluded clinically. Otherwise, no evidence of metastatic lesions in the chest and abdomen and pelvi s. No acute abdominopelvic findings. Reading Location: [facility]
== END | disposition home or self-care (01) ==
LOC: CT 15:31
PROVIDERS: PCP Nurse Practitioner Family; Referring Provider Internal Medicine Hematology & Oncology; Visit Provider Internal Medicine Hematology & Oncology
DX: C62.91 Malignant neoplasm of right testis, unspecified whether descended or undescended (principal); C77.2 Secondary and unspecified malignant neoplasm of intra-abdominal lymph nodes; C38.3 Malignant neoplasm of mediastinum, part unspecified
CPT/HCPCS: 71260; 74177; Q9967